=== PATIENT | male | born 1990 | race Caucasian/White ===

== ENCOUNTER 2023-01-23 19:30 | Emergency (ER) | payer OTHER, BC, SELFPAY ==
[2023-01-23 19:38] VITALS: BP 118/64; BP 132/68; PULSE 68; PULSE 78; RESP 22; TEMP 36.9; O2SAT 98; O2SAT 99; BMI 34.6
--- NOTE | 2023-01-23 21:08 | ED.BACK ---
HPI - Back Pain/Injury General Chief Complaint: Back Pain/Injury Stated Complaint: lower back pain Time Seen by Provider: 01/23/23 21:00 Source: patient and family Mode of arrival: EMS Limitations: no limitations History of Present Illness HPI Narrative: 32-year-old male with no significant past medical history presents to the emergency depart complaining of back pain. 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 He denies having any history of back pain he denies any fevers or chills he denies IV drug use he denies any loss of control of his bowel or bladder function he states he has become so stiff that he can not wipe his own blood. He has been taking ibuprofen his last dose of ibuprofen was over 9 hours ago. He has been taking for [id number] ibuprofen. He was seen at an urgent care and sent here for possible x-rays even though it is explained to him that x-rays not test of choice for this kind of issue. MD elicited complaint: back pain and back injury Related Data Previous Rx's Medication Instructions Recorded acetaminophen 325 mg tablet 325 mg PO QID PRN pain #90 tabs 01/23/23 (Tylenol) cyclobenzaprine 5 mg tablet 5 mg PO BEDTIME PRN muscle spasm 01/23/23 #20 tabs prednisone 20 mg tablet 60 mg PO DAILY Asthma 5 days #15 01/23/23 tabs Allergies Allergy/AdvReac Type Severity Reaction Status Date / Time No Known Allergies Allergy Verified 01/23/23 19:42 [No Known Allergies*] Review of Systems Review of Systems: Insert review of systems [facility] Social History Social History Advance Directives: No Advance Directives Information Provided: No Physical Exam Vital Signs: Vital Signs: Last Vital Signs Temp 98.4 F 01/23/23 19:38 Pulse 78 01/23/23 19:38 Resp 22 H 01/23/23 19:38 BP 118/64 01/23/23 19:38 Pulse Ox 99 01/23/23 19:38 O2 Del Method Room Air 01/23/23 19:38 BMI result Body Mass Index 34.6 General: Well-appearing well-nourished in no signs of distress HEENT: Normocephalic atraumatic Neck: No signs of JVD, no masses no tenderness or lymphadenopathy Cardiovascular: Regular rate and rhythm Respiratory: Clear to auscultation bilaterally Abdomen: Soft nontender no masses Extremities: Normal pedal pulses no signs of edema Skin: Dry warm no rashes Back: No tenderness full ROM he has brisk reflexes bilateral decreased movement but bilateral movement and strength, he has sensation to his buttucks, and perineum on exam Medications Administered Discontinued Medications Generic Name Dose Route Start Last Admin Trade Name Parul PRN Reason Stop Dose Admin Acetaminophen 650 mg 01/23/23 21:07 01/23/23 21:15 Acetaminophen 325 Mg Tablet PO 01/23/23 21:08 650 mg ONCE ONE Administration Cyclobenzaprine HCl 10 mg 01/23/23 21:08 01/23/23 21:15 Cyclobenzaprine Hcl 10 Mg Tablet PO 01/23/23 21:09 10 mg ONCE ONE Administration Haloperidol Lactate 5 mg 01/23/23 21:07 01/23/23 21:16 Haloperidol Lactate 5 Mg/Ml Vial IM 01/23/23 21:08 5 mg ONCE ONE Administration Ketorolac Tromethamine 15 mg 01/23/23 21:07 01/23/23 21:17 Ketorolac Tromethamine 30 Mg/Ml Vial IM 01/23/23 21:08 15 mg ONCE ONE Administration Prednisone 60 mg 01/23/23 21:07 01/23/23 21:15 Prednisone 20 Mg Tablet PO 01/23/23 21:08 60 mg ONCE ONE Administration Medical Decision Making Medical Decision Making [facility] Narrative: Patient has no recent trauma no unexplained weight loss no neurological symptoms weakness numbness anywhere in the body patient is younger than 50 has no fever no intervening drug use no steroid use no history of cancer prostate renal breast or lung no recent surgeries to the back and no tenderness to the back on palpation no fevers chills sweats night pain when he does not have any morning stiffness that lasts longer than 30 minutes. I think the patient benefit from pain control give Haldol for pain control cyclobenzaprine prednisone Toradol and Tylenol and reassess. [id number] Patient states he is no better but he was loudly moaning and unable to move when he came in by ambulance. He now is sitting up speaking full sentences I will send him home with prednisone and cyclobenzaprine with PCP follow up. Differential Diagnosis Differential Diagnoses: The differential diagnosis associated with the presentation includes Concern for disc herniation patient has pain up and down his back than isolated mostly to left lower back. Patient has no falls or injuries but did this something that caused the pain. I will hold off any x-rays I did spend time with him is the expected given x-ray explained to the bleed does not give us much information is not clinically relevant as MRIs without choice but to he need a MRI emergently as he has no back pain red flags as described above. Admission/Observation Consideration of admission/observation: Escalation of care including admission/observation considered Independent Historian Clinical information obtained from an independent historian. History obtained from or confirmed by: Spouse Discharge Plan Discharge Clinical Impression: Sciatica, Lumbar radiculopathy Patient Disposition: Home, Self-Care Instructions: Sciatica (ED), Lumbar Radiculopathy (ED), Lower Back Exercises (ED) Additional Instructions: Please call to follow up for your back pain. If you have any other concerns please return to the ED. Prescriptions: New acetaminophen [Tylenol] 325 mg tablet 325 mg PO QID PRN (Reason: pain) Qty: 90 0RF prednisone 20 mg tablet 60 mg PO DAILY 5 Days Qty: 15 0RF cyclobenzaprine 5 mg tablet 5 mg PO BEDTIME PRN (Reason: muscle spasm) Qty: 20 0RF Stand Alone Forms: Work/School Release
[2023-01-23] MEDS: Cyclobenzaprine HCl 10 MG TABLET PO (21:15)
[2023-01-23] MEDS: predniSONE 20 MG TABLET 60 MG PO (21:15)
[2023-01-23] MEDS: Acetaminophen 325 MG TABLET 650 MG PO (21:15)
[2023-01-23] MEDS: Haloperidol Lactate 5 MG/ML VIAL IM (21:16)
[2023-01-23] MEDS: Ketorolac Tromethamine 30 MG/ML VIAL 15 MG IM (21:17)
--- NOTE | 2023-01-23 21:20 | PC.NURSE ---
pt medicated according to mar per dr don's orders. pt medicated for 10/10 pain. this rn adjusted in bed. two pillows provided under R arm. pt partner at bedside at this time
[2023-01-23 22:28] VITALS: BP 105/62; PULSE 64; RESP 20; TEMP 36.8; O2SAT 98
--- NOTE | 2023-01-23 22:37 | PC.NURSE ---
skin pwd. vss. pt partner at bedside at time of discharge. ptprovided with discharge packet and work note. pt verbalized understanding of discharge plan. pt utilized wheelchair at discharge. this rn assisted pt into wheelchair at discharge
== END 2023-01-23 22:38 | disposition home or self-care (01) ==
PROVIDERS: Emergency Provider Student in an Organized Health Care Education/Training Program
DX: M54.16 Radiculopathy, lumbar region (principal); M54.40 Lumbago with sciatica, unspecified side; Z79.899 Other long term (current) drug therapy
CPT/HCPCS: 96372; 99284; J1885

== ENCOUNTER → 2023-01-29 12:18 | Outpatient (BNVA) | payer OTHER, SELFPAY | PROVIDERS: Visit Provider Internal Medicine | DX: M54.42 Lumbago with sciatica, left side (principal) | CPT/HCPCS: 99203 ==

== ENCOUNTER → 2023-01-31 15:07 | Outpatient (BNVA) | payer OTHER, SELFPAY | PROVIDERS: Visit Provider Internal Medicine | DX: M54.50 Low back pain, unspecified (principal) | CPT/HCPCS: 99213 ==

== ENCOUNTER → 2023-02-07 08:01 | Outpatient (BNVA) | payer OTHER, SELFPAY | PROVIDERS: Visit Provider Internal Medicine | DX: M54.42 Lumbago with sciatica, left side (principal) | CPT/HCPCS: 99213 ==

== ENCOUNTER → 2023-02-15 10:53 | Outpatient (BNVA) | payer OTHER, SELFPAY | PROVIDERS: Visit Provider Internal Medicine | DX: M54.42 Lumbago with sciatica, left side (principal) | CPT/HCPCS: 99213 ==

== ENCOUNTER → 2023-02-19 13:14 | Outpatient (BNVA) | payer OTHER, SELFPAY | PROVIDERS: Visit Provider Internal Medicine | DX: M54.42 Lumbago with sciatica, left side (principal) | CPT/HCPCS: 99213 ==

== ENCOUNTER → 2023-03-07 11:00 | Outpatient (BNVA) | payer OTHER, SELFPAY | PROVIDERS: Visit Provider Internal Medicine | DX: M54.42 Lumbago with sciatica, left side (principal) | CPT/HCPCS: 99213 ==

== ENCOUNTER → 2023-03-19 11:02 | Outpatient (BNVA) | payer OTHER, SELFPAY | PROVIDERS: Visit Provider Internal Medicine | DX: M54.42 Lumbago with sciatica, left side (principal) | CPT/HCPCS: 99213 ==

== ENCOUNTER → 2023-04-05 15:28 | Outpatient (BNVA) | payer OTHER, SELFPAY | PROVIDERS: Visit Provider Internal Medicine | DX: M54.42 Lumbago with sciatica, left side (principal) | CPT/HCPCS: 99213 ==

== ENCOUNTER 2023-04-12 07:00 | Outpatient (RCR) | payer OTHER, BC, SELFPAY ==
--- NOTE | 2023-02-13 17:08 | MHC.PT.EP ---
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 Pt is deemed an appropriate candidate to receive skilled PT services to address their physical impairments in order to improve their functional ability. Frequency and Duration: The patient will be seen 2nx / wk x6 wks. Short Term Goals: Initiate HEP. L LE radicular Sx abolished. Pt will be able to sit > 1 hour with manage Sx; initial: moderate difficulty. Divisional Human Resources Director Goals: I with home program. Pt will be able to walk 1 mile with managed Sx; initial: Quite a bit of difficulty. Pt will be able to ascend and descend 1 fl of stairs w/ managed sx; initial: quite a bit of difficulty. Pt will be able to perform Heavy HH chores with at most a little bit of difficulty. Treatment Plan: Modalities to reduce pain, spasms and effusion. Manual therapy to restore motion and function. Therapeutic exercise to improve strength and flexibility. Neuromuscular re-education for posture and balance. Therapeutic activities to return to functional activities of daily living. Electronically signed by: Orion Reynolds PT. Please sign and return to therapist. Thank you for your referral.
--- NOTE | 2023-04-23 17:14 | MHC.PT.DC ---
[facility] [place] Office [place] Office [place] Office [address]rina Frank [address] [phone] F: [phone] F: [phone] F: [phone] F: [phone] Physical Therapy Discharge Report Diagnosis: Back pain and L LE pain Date of Surgery: Date of Evaluation: 02/13/23 Date of Discharge: 04/23/23 Treatments to Date: 3 Cancellations to Date: 2 No Shows to Date: 3 Discharge Status: Visit Non-compliance Discharge Summary: Pt logged 2 cancels and 3 no show apts and is DC'd per [facility] attendance policy. Electronically signed by: Orion Reynolds PT. Please sign and return to therapist. Thank you for your referral.
== END 2023-04-23 17:14 | disposition home or self-care (01) ==
LOC: HO.PTCHIC 07:00
PROVIDERS: Visit Provider Internal Medicine
DX: M54.9 Dorsalgia, unspecified (principal); M79.605 Pain in left leg
CPT/HCPCS: 97110; 97161; 97164

== ENCOUNTER → 2023-04-19 08:22 | Outpatient (BNVA) | payer OTHER, SELFPAY | PROVIDERS: Visit Provider Internal Medicine | DX: M54.9 Dorsalgia, unspecified (principal) | CPT/HCPCS: 99213 ==

== ENCOUNTER 2023-08-23 17:58 | Emergency (ER) | payer BC, SELFPAY ==
--- NOTE | ~2023-08-23 | CT_ITS ---
EXAMINATION: CT ABDOMEN AND PELVIS WITH CONTRAST CLINICAL INFORMATION: Serial abdominal pain COMPARISON: None available. TECHNIQUE: Multidetector volumetric images were obtained from the superior aspect of the liver through the pubic symphysis following administration 85 mL of Omnipaque 350 intravenous contrast. Sagittal and coronal reformatted images were obtained on the technologist's workstation. Oral contrast: No This CT examination was performed using dose optimization techniques as appropriate, variously including the following: *Automated exposure control *Adjustment of mA and/or kV according to patient size (this includes techniques or standardized protocols for targeted exams where dose is matched to indication/reason for exam; i.e. extremities or head) *Use of iterative reconstruction technique DLP: 732 mGy-cm FINDINGS: LUNG BASES: The lung bases are clear. The heart size is normal. LIVER, GALLBLADDER, AND BILIARY TREE: The liver is normal in size, shape, and attenuation. No focal hepatic lesion or biliary ductal dilatation is present. The gallbladder has been surgically removed. PANCREAS: Unremarkable. SPLEEN: Unremarkable. ADRENAL GLANDS: Unremarkable. KIDNEYS AND URETERS: The kidneys are normal in size, shape, and attenuation. No hydronephrosis, hydroureter, or calculi seen. No perinephric stranding. BLADDER: Unremarkable. GASTROINTESTINAL TRACT: There is scattered stool and gas seen throughout the colon without significant distention. Subserosal fat deposits in is seen within the descending colon and terminal ileum, a nonspecific finding. No pericolic fat stranding. The small bowel loops are normal caliber. Appendix is normal caliber with hyperdense material at the base question appendicolith. No fat stranding seen. ABDOMINAL WALL: No significant hernia is appreciated. LYMPH NODES: Normal. VASCULAR: Unremarkable. PELVIC VISCERA: No free air or free fluid. No abnormal pelvic lymph nodes. OSSEOUS STRUCTURES: No aggressive lytic or sclerotic process seen CT/CT abdomen pelvis w IV con IMPRESSION: 1. No acute intra-abdominal process seen. 2. Mild constipation. Fleischner guidelines were followed.
[2023-08-23 18:14] VITALS: BP 110/80; PULSE 109; RESP 20; TEMP 37.3; O2SAT 97; BMI 33.2
--- NOTE | 2023-08-23 18:16 | ED_ITS ---
HPI - General Adult General Chief complaint: Abdominal Pain Stated complaint: has pancreatitis , in pain Time Seen by Provider: 08/23/23 18:50 Source: patient, family, RN notes reviewed and old records reviewed Mode of arrival: ambulatory Limitations: no limitations History of Present Illness HPI narrative: Pt is a 32yo male who presents to the ED with abdominal pain. He states that he had his gallbladder removed in June and a gallstone got left lodged in the pancreas. He presented to [facility] this past Saturday for severe abdominal pain but left AMA due to concerns that they weren't doing enough for him. He states that they diagnosed him with pancreatitis and had been controlling his pain with morphine. Since leaving his pain returned and he currently rates it a 9/10 sharp stabbing pain worst in the epigastric and LUQ regions that radiates to the lower back bilaterally. Pt notes some relief of pain with laying down. Denies vomiting but notes some nausea when the pain gets bad. He notes that his last BM was Saturday which was diarrhea. He has been on a liquid diet since Saturday. He states a subjective fever this morning but denies chest pain, difficulty breathing, or palpitations. I was able to obtain records for [facility] including a CT scan from 08/21/2023 that shows findings are concerning for possible pancreatitis. Recommend correlation with patient's lab findings. Mild gastritis. Slightly enlarged appendix measuring up to 8 mm with appendicolith but no fat stranding Related Data Previous Rx's Medication Instructions Recorded acetaminophen 325 mg tablet 325 mg PO QID PRN pain #90 tabs 01/23/23 (Tylenol) cyclobenzaprine 5 mg tablet 5 mg PO BEDTIME PRN muscle spasm 01/23/23 #20 tabs prednisone 20 mg tablet 60 mg (3 x 20 mg) PO DAILY Asthma 01/23/23 5 days #15 tabs ondansetron 4 mg disintegrating 4 mg PO Q8H PRN nausea and 08/23/23 tablet vomiting #20 tabs oxycodone 5 mg tablet 5 mg PO Q6H PRN severe pain (scale 08/23/23 score 7-10) #12 tabs Allergies Allergy/AdvReac Type Severity Reaction Status Date / Time No Known Allergies Allergy Verified 08/23/23 18:20 [No Known Allergies*] Review of Systems 2 Constitutional: Constitutional: Reports chills, Reports fever(s), Reports headache(s) and Denies weakness Eyes: Eyes: Denies change in vision ENT: Denies dizziness and Reports headache(s) Cardiovascular: Cardiovascular: Denies chest pain, Reports Epigastric Pain and Denies dyspnea Respiratory: Respiratory: Denies dyspnea Gastrointestinal: Gastrointestinal: Reports abdominal pain, Reports diarrhea (Last BM on Saturday morning was diarrhea), Reports nausea and Denies vomiting Genitourinary: Genitourinary: Reports dysuria (notes one isolated episode of dysuria yesterday) and Denies urinary frequency Neurologic: Denies dizziness, Reports headache(s) and Denies weakness [facility] Social History Smoked in Last 30 Days: No Use of substances other than those prescribed or required for medical reasons: Yes Substance Use Type: Marijuana Advance Directives: No Advance Directives Information Provided: No Physical Exam ED Vital Signs: Vital Signs - 24 hr 08/23/23 18:14 08/23/23 20:36 Temperature 99.2 F 99 F Pulse Rate 109 H 76 Respiratory Rate 20 18 Blood Pressure 110/80 110/72 Pulse Oximetry 97 99 Oxygen Delivery Method Room Air Room Air BMI result Body Mass Index 33.2 Const General: cooperative, no acute distress, alert and awake; No comfortable Orientation/consciousness: patient oriented x3 HENMT Head: Yes normocephalic and Yes atraumatic Ears: hearing grossly normal bilaterally General nose exam: Normal external nose present Eyes General: appearance normal, both eyes and all related structures Neck Neck: Yes normal visual inspection Chest Chest palpation & inspection: normal inspection of the chest Resp Effort & Inspection: normal respiratory effort and able to speak in complete sentences Auscultation: clear to auscultation bilaterally Cardio Rate: regular rate Rhythm: regular rhythm Heart sounds: S1 normal heart sound present and S2 normal heart sound present GI Inspection: Yes normal to inspection and No abdominal wall ecchymosis Palpation (GI): Soft to palpation, not firm, Tenderness to palpation present (GI) (tenderness most severe in LUQ) in the epigastrum, in the LLQ, in the LUQ and in the RUQ; not in the RLQ and Guarding due to palpation present (GI) Auscultation: Hypoactive bowel sounds present Neuro General: patient oriented x3 and moves all extremities Motor exam (neuro): 5/5 motor strength present throughout Course Course Course Narrative: This is a rapid medical exam: Additional HPI, ROS, PE not included below will be deferred to primary provider. Patient is a 32-year-old male presenting to the ED with complaint of abdominal pain, nausea. Left AMA from [facility] yesterday where he was admitted for pancreatitis. Also reports recent cholecystectomy, states they left a stone in there. States today he ate 2 crackers and strawberry ice cream. Denies nausea/vomiting but states pain is radiating from his abdomen into his back which is new. Denies history of alcohol use. Plan: labs, UA Reevaluation(s) Reevaluation #1: Patient's CT scan shows no evidence of pancreatitis, his lipase within normal limits, he does have a mild elevation with a 1.5 but is mostly indirect bili Carter therefore less likely to be an obstructive biliary process. Patient's pain is currently under control. History will tolerate fluids. Will discharge the patient with GI follow-up Time: 22:57 Medications Administered Discontinued Medications Generic Name Dose Route Start Last Admin Trade Name Freq PRN Reason Stop Dose Admin Sodium Chloride 1,000 mls @ 999 mls/hr 08/23/23 19:15 08/23/23 21:04 Ns IV 08/23/23 20:15 Infused .Q1H1M JOE Infusion Iohexol 85 ml 08/23/23 20:11 08/23/23 20:12 Iohexol 350 Mg/Ml 100 Ml Infus..Btl IV 08/23/23 20:12 85 ml ONCE ONE Administration Morphine Sulfate 4 mg 08/23/23 19:10 08/23/23 19:30 Morphine Sulfate 4 Mg/Ml Cartridge IVPUSH 08/23/23 19:11 4 mg ONCE ONE Administration Protocol Ondansetron HCl 4 mg 08/23/23 19:10 08/23/23 19:30 Ondansetron Hcl 4 Mg/2 Ml Vial IVPUSH 08/23/23 19:11 4 mg ONCE ONE Administration Medical Decision Making Medical Decision Making MDM Narrative: 32-year-old male presents for evaluation of continued abdominal pain. He was seen at [facility] and left AMA yesterday for pancreatitis. We will repeat labs, CT scan the abdomen pelvis. Patient was noted have a temperature about 99.2. He does not have a leukocytosis, LFTs are slightly elevated. Lipase over normal limits. Differential Diagnosis Differential Diagnoses: The differential diagnosis associated with the presentation includes (acute pancreatitis, appendicitis, gastroenteritis, pyelonephritis, post-cholecystectomy cholangitis) Admission/Observation Consideration of admission/observation: Escalation of care including admission/observation considered Lab Data MDM Lab Attestation statement: I reviewed the patient's lab results. No leukocytosis or anemia. Chloride just above normal at 109. Normal renal function. Patient has a slight transaminitis and LFTs within normal limits 08/23/23 18:41 08/23/23 18:41 Labs: Lab Results 08/23/23 08/23/23 Range/Units 18:41 20:49 WBC 8.6 (4.8-10.8) X10*3/uL RBC 5.19 (4.60-5.80) X10*6/uL Hgb 14.3 (14.0-18.0) g/dl Hct 42.3 (42.0-52.0) % MCV 81.5 (80.0-98.0) fL MCH 27.6 (27.0-33.0) pg MCHC 33.8 (31.0-36.0) g/dl RDW 13.8 (11.0-16.0) % Plt Count 264 (160-400) X10*3/uL MPV 9.2 L (9.4-12.4) fL Immature Gran % (Auto) 0.1 (0.0-0.4) % Neut % (Auto) 53.8 (45-73) % Lymph % (Auto) 32.4 (20-40) % Forrest % (Auto) 8.5 (2-11) % Eos % (Auto) 4.3 H (0-4) % Baso % (Auto) 0.9 (0-2) % Lymph # (Auto) 2.8 (1.2-4.9) X10*3/uL Forrest # (Auto) 0.7 (0.1-1.2) X10*3/uL Eos # (Auto) 0.4 (0.0-0.4) X10*3/uL Baso # (Auto) 0.1 (0.0-0.2) X10*3/uL Abs Immat Gran (auto) 0.01 (0.00-0.03) X10*3/uL Absolute Neuts (auto) 4.6 (2.0-8.3) x10*3/uL Absolute Nucleated RBC 0.000 (0.0-0.012) X10*3/uL Nucleated RBC % (auto) 0.0 (0.0-0.2) /100WBC PT 11.7 (11.1-13.3) SEC INR 1.0 (0.9-1.1) APTT 18.7 L (26.0-36.4) SEC Sodium 141 (135-145) mmol/L Potassium 3.8 (3.3-5.1) mmol/L Chloride 109 H (96-108) mmol/L Carbon Dioxide 25 (22-29) mmol/L Anion Gap 11 L (12-20) BUN 8 L (9-16) mg/dL Creatinine 0.81 (0.5-1.4) mg/dL Estim Creat Clear Calc 168.5 Estimated GFR > 60 Random Glucose 75 (60-115) mg/dL Calcium 9.4 (8.4-10.2) mg/dL Total Bilirubin 1.5 H (0.0-1.0) mg/dL Direct Bilirubin 0.4 (0.0-0.5) mg/dL AST 42 H (5-37) U/L ALT 159 H (0-40) U/L Alkaline Phosphatase 89 (39-117) U/L Total Protein 7.2 (6.5-8.0) g/dL Albumin 4.1 (3.5-5.0) g/dL Triglycerides 92 (<150) mg/dL Lipase 74 (8-78) U/L Urine Color Yellow Urine Appearance Clear Urine pH 7.0 (5.0-9.0) Ur Specific [place] 1.015 (1.005-1.025) Urine Protein Negative (Neg-Trace) mg/dL Urine Glucose (UA) Negative (Negative) mg/dL Urine Ketones Negative (Negative) mg/dL Urine Blood Negative (Negative) Urine Nitrite Negative (Negative) Ur Leukocyte Esterase Negative (Negative) Discharge Plan Discharge Clinical Impression: Abdominal pain Patient Disposition: Home, Self-Care Instructions: Abdominal Pain (ED) Additional Instructions: Your workup in the emergency department today was reassuring. This includes your blood work as well as her CT scan. The you do not have acute pancreatitis You may use oxycodone for severe or breakthrough pain This may make you sleepy, did not drink alcohol or drive after taking it Drink lots of fluids, small sips at a time You should continue with a liquid diet for the next 2 days and advance slowly as tolerated Prescriptions: New ondansetron 4 mg tablet,disintegrating 4 mg PO Q8H PRN (Reason: nausea and vomiting) Qty: 20 0RF oxycodone 5 mg tablet 5 mg PO Q6H PRN (Reason: severe pain (scale score 7-10)) Qty: 12 0RF Rx Instructions: Partial Fill upon patient request. No Action acetaminophen [Tylenol] 325 mg tablet 325 mg PO QID PRN (Reason: pain) Qty: 90 0RF prednisone 20 mg tablet 60 mg PO DAILY 5 Days Qty: 15 0RF cyclobenzaprine 5 mg tablet 5 mg PO BEDTIME PRN (Reason: muscle spasm) Qty: 20 0RF Stand Alone Forms: Work/School Release
[2023-08-23 18:47] LABS: MANUAL DIFF FLAG NO
[2023-08-23 18:49] LABS: Basophils Absolute Auto 0.1 X10*3/uL (0.0-0.2); Basophils Percent Auto 0.9 % (0-2); Eosinophils Absolute Auto 0.4 X10*3/uL (0.0-0.4); Eosinophils Percent Auto 4.3 % (0-4); Hematocrit 42.3 % (42.0-52.0); Hemoglobin 14.3 g/dl (14.0-18.0); Imm Gran Abs Auto 0.01 X10*3/uL (0.00-0.03); Imm Gran Pct Auto 0.1 % (0.0-0.4); Lymphocytes Absolute Auto 2.8 X10*3/uL (1.2-4.9); Lymphocytes Percent Auto 32.4 % (20-40); Mean Corpuscular HGB Conc 33.8 g/dl (31.0-36.0); Mean Corpuscular Hemoglobin 27.6 pg (27.0-33.0); Mean Corpuscular Volume 81.5 fL (80.0-98.0); Mean Platelet Volume 9.2 fL (9.4-12.4); Monocytes Absolute Auto 0.7 X10*3/uL (0.1-1.2); Monocytes Percent Auto 8.5 % (2-11); Neutrophils Absolute Auto 4.6 x10*3/uL (2.0-8.3); Neutrophils Percent Auto 53.8 % (45-73); Platelet Count 264 X10*3/uL (160-400); Red Blood Count 5.19 X10*6/uL (4.60-5.80); Red Cell Distribution Width 13.8 % (11.0-16.0); White Blood Count 8.6 X10*3/uL (4.8-10.8)
[2023-08-23 18:54] LABS: Prothrombin Time 11.7 SEC (11.1-13.3)
[2023-08-23 18:57] LABS: Partial Thromboplastin Time 18.7 SEC (26.0-36.4)
[2023-08-23 19:02] LABS: Alanine Aminotransferase 159 U/L (0-40); Albumin Level 4.1 g/dL (3.5-5.0); Alkaline Phosphatase 89 U/L (39-117); Anion Gap 11 (12-20); Aspartate Amino Transferase 42 U/L (5-37); Bilirubin Total 1.5 mg/dL (0.0-1.0); Blood Urea Nitrogen 8 mg/dL (9-16); Calcium 9.4 mg/dL (8.4-10.2); Carbon Dioxide 25 mmol/L (22-29); Chloride 109 mmol/L (96-108); Creatinine Clr Calc Pharmacy 168.5; Estimated Glomerular Filt Rate > 60; Glucose Random 75 mg/dL (60-115); Potassium 3.8 mmol/L (3.3-5.1); Sodium 141 mmol/L (135-145); Total Protein 7.2 g/dL (6.5-8.0)
[2023-08-23] MEDS: Morphine Sulfate 4 MG/ML CARTRIDGE IVPUSH (19:30)
[2023-08-23] MEDS: 0.9 % Sodium Chloride 1,000 ML 999 ML IV (19:30)
[2023-08-23] MEDS: ondansetron HCL 4 MG/2 ML VIAL IVPUSH (19:30)
[2023-08-23 19:36] LABS: Lipase 74 U/L (8-78)
--- NOTE | 2023-08-23 19:36 | PC.NURSE ---
this rn assumed care of pt. pt a&ox4, respirations even and unlabored. pt reporting epigastric pain and left upper abdominal pain, nausea and vomiting since saturday. pt reports pain like this in the past where he states he needed gallbladder surgery. pt reporting 10/10 pain at this time. Iv established and pt medicated per nov.
[2023-08-23] MEDS: iohexoL 350 MG/ML 100 ML INFUS..BTL 85 ML IV (20:12)
--- NOTE | 2023-08-23 20:34 | MHC.EDTECH ---
VSS, labs collected and sent . Pt resting quietly in room.
[2023-08-23 20:36] VITALS: BP 110/72; PULSE 76; RESP 18; TEMP 37.2; O2SAT 99
[2023-08-23 20:55] LABS: Appearance Urine Clear; Color Urine Yellow; Glucose Urine UA Negative (Negative); Leukocyte Esterase Urine Negative (Negative); Nitrite Urine Negative (Negative); Specific Gravity - Urine 1.015 (1.005-1.025); Urine Blood Negative (Negative); Urine Ketones Negative (Negative); Urine Protein Negative (Neg-Trace)
[2023-08-23 22:20] LABS: Bilirubin Direct 0.4 mg/dL (0.0-0.5); Triglycerides 92 mg/dL (<150)
[2023-08-23 23:20] VITALS: BP 121/71; PULSE 58; RESP 18; TEMP 36.7; O2SAT 99
== END 2023-08-23 23:22 | disposition home or self-care (01) ==
PROVIDERS: Physician Assistant; Registered Nurse Emergency; Emergency Provider Emergency Medicine Emergency Medical Services
DX: K85.90 Acute pancreatitis without necrosis or infection, unspecified (principal); R10.12 Left upper quadrant pain; R10.13 Epigastric pain; Z79.899 Other long term (current) drug therapy
CPT/HCPCS: 36415; 74177; 80053; 81003; 82248; 83690; 84478; 85025; 85610; 85730; 87040; 96361; 96374; 96375; 99284; 99285; J2270; J2405; Q9967

== ENCOUNTER 2024-07-04 10:22 | Emergency (ER) | payer OTHER, MEDICAID, SELFPAY ==
--- NOTE | ~2024-07-04 | MR_ITS ---
EXAMINATION: MR LUMBAR SPINE WITHOUT CONTRAST CLINICAL INFORMATION: Lower back pain. Cauda equina syndrome. COMPARISON: CT abdomen and pelvis from 08/23/2023. TECHNIQUE: MRI of the lumbar spine was obtained using routine sequences without contrast. FINDINGS: Moderately motion degraded exam. Mild degenerative retrolistheses of L5 on S1. Otherwise, normal anatomic alignment. Moderate degenerative disc disease at L5-S1. Mild disc degeneration from T11-L2. Associated mixed Modic type discogenic endplate changes including Modic type I discogenic edema at L5-S1. No additional suspicious marrow edema. The vertebral body heights are well-maintained. The conus medullaris terminates at the level of L1-L2. The distal spinal cord appears normal in morphology without overt expansion. No definitive signal abnormalities of the distal cord, although evaluation is limited at the edge of field of view and secondary to motion degradation. Moderate subcutaneous edema within the posterior soft tissues of the back from L2-L5. No additional significant abnormalities of the paraspinal musculature. Limited evaluation of the intra-abdominal structures without significant abnormalities. The abdominal aorta is of normal contour and caliber. AXIAL SPINAL LEVELS: T12-L1: Normal annular contour. There is no facet joint arthropathy. There is no neural foraminal stenosis. There is no spinal canal stenosis. L1-L2: Normal annular contour. There is mild bilateral facet joint arthropathy. There is no neural foraminal stenosis. There is no spinal canal stenosis. L2-L3: Normal annular contour. There is mild to moderate bilateral facet joint arthropathy. There is no neural foraminal stenosis. There is no spinal canal stenosis. L3-L4: Normal annular contour. There is mild bilateral facet joint arthropathy. There is no neural foraminal stenosis. There is no spinal canal stenosis. L4-L5: Shallow diffuse disc bulge. There is mild bilateral facet joint arthropathy. There is mild left and no right neural foraminal stenosis. There is no spinal canal stenosis. L5-S1: Moderate diffuse disc bulge superimposed central disc extrusion with slight inferior migration. There is mild bilateral facet joint arthropathy. There is moderate left and mild right neural foraminal stenosis. There is no spinal canal stenosis. MR/MR lumbar spine wo con IMPRESSION: Mild multilevel degenerative spondyloarthropathy of the lumbar spine as described in detail above. There is a central disc extrusion at L5-S1 and moderate left-sided neural foraminal stenosis at this level. No overt spinal canal stenosis. The distal spinal cord appears normal in morphology without overt expansion. No definitive signal abnormalities of the distal cord, although evaluation is limited at the edge of field of view and secondary to motion degradation. Electronically signed by: Jose Francisco Gudino DO 07/04/2024 07:03 PM EDT
--- NOTE | ~2024-07-04 | XR_ITS ---
EXAMINATION: XR LUMBOSACRAL SPINE CLINICAL INFORMATION: Injury. Back pain. COMPARISON: Lumbar spine x-rays of 11/07/2018 . TECHNIQUE: Three views of the lumbosacral spine. FINDINGS: There are 5 lumbar-type nonrib-bearing vertebrae. The vertebral body heights and alignment are maintained. Stable mild narrowing of the L5-S1 disc space, remainder of the disc spaces are well preserved. Posterior elements appear intact. Minimal anterior wedge compression at T12 is a stable chronic finding. No suspicious lytic or blastic osseous lesions. Postcholecystectomy surgical clips in the right upper abdominal quadrant are redemonstrated. Unremarkable appearance of the sacroiliac joints. Unremarkable paraspinous soft tissues. XR/XR lumbar spine 2-3V IMPRESSION: No radiographic evidence of acute compression fracture or suspicious osseous lesion in the lumbar spine. Mild degenerative disc disease at L5-S1. Electronically signed by: Tamie Sue MD 07/04/2024 01:29 PM EDT
[2024-07-04 10:29] VITALS: BP 107/57; BP 134/66; PULSE 61; PULSE 67; RESP 18; TEMP 36.3; O2SAT 96; O2SAT 98; BMI 35.1
--- NOTE | 2024-07-04 11:15 | ED_ITS ---
HPI - Back Pain/Injury General Chief Complaint: Back Pain/Injury Stated Complaint: LOW BACK PAIN S/P MOVED WRONG @ WORK T-1 Time Seen by Provider: 07/04/24 10:50 Source: patient and EMS Mode of arrival: EMS Limitations: no limitations History of Present Illness ED Provider: Purnima Pereira APRN HPI Narrative: 33 yo male with history of herniated discs presents to the ER with complaints of lower back pain after lifting a 3x6 at work yesterday. Pain radiates to both legs right leg greater than left. No associated numbness, weakness, tingling of the extremities. No numbness in the groin. No bowel or bladder incontinence. No fevers or chills. Patient took some leftover meloxicam yesterday which did seem to help his pain. He has not taken anything today. He is having difficulty with ambulation due to pain. Denies any weight loss, night sweats, history of IV drug abuse. Related Data Previous Rx's ?Medication ?Instructions ?Recorded acetaminophen 325 mg tablet 325 mg PO QID PRN pain #90 tabs 01/23/23 (Tylenol) cyclobenzaprine 5 mg tablet 5 mg PO BEDTIME PRN muscle spasm 01/23/23 #20 tabs prednisone 20 mg tablet 60 mg (3 x 20 mg) PO DAILY Asthma 01/23/23 5 days #15 tabs ondansetron 4 mg disintegrating 4 mg PO Q8H PRN nausea and 08/23/23 tablet vomiting #20 tabs oxycodone 5 mg tablet 5 mg PO Q6H PRN severe pain (scale 08/23/23 score 7-10) #12 tabs methocarbamol 750 mg tablet 1,500 mg (2 x 750 mg) PO QID PRN 07/04/24 pain #40 tabs methylprednisolone 4 mg tablets in 4 mg PO QAM #1 ea 07/04/24 a dose pack (Medrol (Gerard)) Allergies Allergy/AdvReac Type Severity Reaction Status Date / Time No Known Allergies Allergy Verified 07/04/24 10:31 [No Known Allergies*] Review of Systems 2 Review of Systems: Yes all other systems are reviewed and are negative Constitutional: Constitutional: Reports no additional constitutional complaints, Denies body ache(s), Denies chills, Denies fever(s), Denies headache(s), Denies night sweats, Denies weakness and Denies weight loss Eyes: Eyes: Reports no additional eye complaints and Denies change in vision ENT: Reports system reviewed and no additional complaints, except as documented, Denies dizziness, Denies headache(s), Denies nasal congestion, Denies nasal discharge and Denies neck pain Cardiovascular: Cardiovascular: Reports no additional cardiovascular complaints, Denies chest pain, Denies leg edema and Denies dyspnea Respiratory: Respiratory: Reports no additional respiratory complaints, Denies cough and Denies dyspnea Gastrointestinal: Gastrointestinal: Reports no additional gastrointestinal complaints, Denies abdominal pain, Denies diarrhea, Denies nausea and Denies vomiting Genitourinary: Genitourinary: Denies urinary incontinence Musculoskeletal: Musculoskeletal: Reports no additional musculoskeletal complaints, Reports back pain, Denies arthralgias, Denies joint swelling, Denies neck pain, Denies numbness, Reports radiating pain into limb and Denies tingling Integumentary/Breasts: Skin/Breast: Reports system reviewed and no additional complaints, except as docu and Denies rash Neurologic: Reports system reviewed and no additional complaints, except as documented, Denies Abnormal speech present, Denies dizziness, Denies headache(s), Denies numbness, Denies tingling and Denies weakness PMFSH Past Medical History Attestation statement: The following information was validated with the patient. Source: old records reviewed and nursing notes reviewed Social History Social History Substance Use Type: Marijuana Advance Directives: No Do you have a plan to hurt others: No Plan Physical Exam 2 Vital Signs: Vital Signs: Last Vital Signs Temp 97.9 F 07/04/24 21:01 Pulse 86 07/04/24 21:01 Resp 18 07/04/24 21:01 BP 124/83 07/04/24 21:01 Pulse Ox 97 07/04/24 21:01 O2 Del Method Room Air 07/04/24 21:01 BMI result Body Mass Index 35.1 Const: General: cooperative, healthy appearing, comfortable and no acute distress Orientation/consciousness: patient oriented x3 Limitations: no limitations HEENT: Head: Yes normal to inspection Ears: hearing grossly normal bilaterally General nose exam: Normal external nose present Face and sinus: Yes normal facial exam Mouth: Normal oral and palatal mucosa present Throat: Yes posterior oropharynx normal Eyes: General: appearance normal, both eyes and all related structures P upils: Equal, round and reactive pupils present Neck: Neck: Yes normal visual inspection Chest: Chest palpation & inspection: normal inspection of the chest Resp: Effort & Inspection: normal respiratory effort Auscultation: clear to auscultation bilaterally Cardio: Rate: regular rate Rhythm: regular rhythm Peripheral pulses: P eripheral pulses 2+ throughout GI: Inspection: Yes normal to inspection Palpation (GI): Soft to palpation and nontender Auscultation: normal bowel sounds Back/Spine/Pelvis: Other: TTP over lumbar spine with no step-offs or deformities. Pain is worsened with bilateral straight leg raise. Thoracic/Lumbar Spine: thoracic and lumbar spine normal to inspection Skin: General skin exam: no rashes or lesions noted Neuro: Other: 5/5 LE strength-able to dorsi flex/plant ar flex with no diff. No foot drop General: patient oriented x3, moves all extremities, no focal motor deficits, normal sensation to monofilament and Unable to assess gait Cranial nerves: Yes Equal, round and reactive pupils present Cognition (Neuro): n ormal cognition Speech: No Abnormal speech present Gait exam (Neuro): U nable to assess gait Motor exam (neuro): 5/5 motor strength present throughout Sensory Exam: Normal double simultaneous stimulation for sensation Deep tendon reflexes (DTR's): Right patellar reflex intensity grade: 2+ and Left patellar reflex intensity grade: 2+ Extrem: General: Yes normal to inspection Course Course Course Narrative: 1330-X-rays shows mild arthritis. Still having pain and diff with ambulation after toradol, flexeril, prednisone. Will give oxycodone. Reevaluation(s) Reevaluation #1: 1500-Continued pain although seems to be more comfortable still having difficulty with ambulation. Will give IM morphine, apply salon pas Reevaluation #2: 1645-Continued pain. Tried to get up to walk, legs giving out on him. No neurological deficits. D/w with attending. Obtain MRI lumbar spine Reevaluation #3: 1900-Sign out to Tiffanie MAST pending MRI Additional Reevaluation(s): Ellie Joy PA-C have accepted care of the patient and signed out pending MRI I have independently reviewed the following tests: MRI lumbar spine:MR LUMBAR SPINE WITHOUT CONTRAST CLINICAL INFORMATION: Lower back pain. Cauda equina syndrome. COMPARISON: CT abdomen and pelvis from 08/23/2023. TECHNIQUE: MRI of the lumbar spine was obtained using routine sequences without contrast. FINDINGS: Moderately motion degraded exam. Mild degenerative retrolistheses of L5 on S1. Otherwise, normal anatomic alignment. Moderate degenerative disc disease at L5-S1. Mild disc degeneration from T11-L2. Associated mixed Modic type discogenic endplate changes including Modic type I discogenic edema at L5-S1. No additional suspicious marrow edema. The vertebral body heights are well-maintained. The conus medullaris terminates at the level of L1-L2. The distal spinal cord appears normal in morphology without overt expansion. No definitive signal abnormalities of the distal cord, although evaluation is limited at the edge of field of view and secondary to motion degradation. Moderate subcutaneous edema within the posterior soft tissues of the back from L2-L5. No additional significant abnormalities of the paraspinal musculature. Limited evaluation of the intra-abdominal structures without significant abnormalities. The abdominal aorta is of normal contour and caliber. AXIAL SPINAL LEVELS: T12-L1: Normal annular contour. There is no facet joint arthropathy. There is no neural foraminal stenosis. There is no spinal canal stenosis. L1-L2: Normal annular contour. There is mild bilateral facet joint arthropathy. There is no neural foraminal stenosis. There is no spinal canal stenosis. L2-L3: Normal annular contour. There is mild to moderate bilateral facet joint arthropathy. There is no neural foraminal stenosis. There is no spinal canal stenosis. L3-L4: Normal annular contour. There is mild bilateral facet joint arthropathy. There is no neural foraminal stenosis. There is no spinal canal stenosis. L4-L5: Shallow diffuse disc bulge. There is mild bilateral facet joint arthropathy. There is mild left and no right neural foraminal stenosis. There is no spinal canal stenosis. L5-S1: Moderate diffuse disc bulge superimposed central disc extrusion with slight inferior migration. There is mild bilateral facet joint arthropathy. There is moderate left and mild right neural foraminal stenosis. There is no spinal canal stenosis. MR/MR lumbar spine wo con IMPRESSION: Mild multilevel degenerative spondyloarthropathy of the lumbar spine as described in detail above. There is a central disc extrusion at L5-S1 and moderate left-sided neural foraminal stenosis at this level. No overt spinal canal stenosis. The distal spinal cord appears normal in morphology without overt expansion. No definitive signal abnormalities of the distal cord, although evaluation is limited at the edge of field of view and secondary to motion degradation. Electronically signed by: Jose Francisco Gudino DO 07/04/2024 07:03 PM EDT RP Dictated By: Holden Gudino DO Signed By: <Electronically signed by Holden Gudino DO in OV> 07/04/24 190 After discussion with the patient, due to his significant pain, he is unable to ambulate, they did trial him with a walker, his leg gave out. He will be held over for case management physical therapy, ordering methocarbamol 1033 pm the patient is now ambulatory, walking without assistance, he would like to go home. We will do so now Medications Administered Discontinued Medications Generic Name Dose Route Start Last Admin Trade Name Freq PRN Reason Stop Dose Admin Cyclobenzaprine HCl 10 mg 07/04/24 11:23 07/04/24 11:28 Cyclobenzaprine Hcl 10 Mg Tablet PO 07/04/24 11:24 10 mg ONCE ONE Administration Ketorolac Tromethamine 60 mg 07/04/24 11:23 07/04/24 11:28 Ketorolac Tromethamine 60 Mg/2 Ml Vial IM 07/04/24 11:24 60 mg ONCE ONE Administration Lidocaine 1 patch 07/04/24 14:57 07/04/24 15:04 Lidocaine 4 % Patch Adh..Patch TRANSDERMA 07/04/24 14:58 1 patch ONCE ONE Administration Protocol Methocarbamol 1,500 mg 07/04/24 20:50 07/04/24 20:58 Methocarbamol 750 Mg Tablet PO 07/04/24 20:51 1,500 mg ONCE ONE Administration Morphine Sulfate 6 mg 07/04/24 14:57 07/04/24 15:05 Morphine Sulfate 10 Mg/Ml Cartridge IM 07/04/24 14:58 6 mg ONCE ONE Administration Protocol Morphine Sulfate 4 mg 07/04/24 16:42 07/04/24 17:04 Morphine Sulfate 4 Mg/Ml Cartridge IVPUSH 07/04/24 16:43 4 mg ONCE ONE Administration Protocol Oxycodone HCl 10 mg 07/04/24 13:35 07/04/24 13:38 Oxycodone Hcl Immed Release 5 Mg Tablet PO 07/04/24 13:36 10 mg ONCE ONE Administration Prednisone 60 mg 07/04/24 11:23 07/04/24 11:29 Prednisone 20 Mg Tablet PO 07/04/24 11:24 60 mg ONCE ONE Administration Medical Decision Making Medical Decision Making [facility] Narrative: 33 yo male with history of herniated discs presents to the ER with complaints of lower back pain after lifting a 3x6 at work yesterday. Pain radiates to both legs right leg greater than left. No associated numbness, weakness, tingling of the extremities. No numbness in the groin. No bowel or bladder incontinence. No fevers or chills. Patient took some leftover meloxicam yesterday which did seem to help his pain. He has not taken anything today. He is having difficulty with ambulation due to pain. Denies any weight loss, night sweats, history of IV drug abuse. TTP over lumbar spine with no step-offs or deformities. Pain is worsened with bilateral straight leg raise. On exam no neurological deficits or red flag symptoms. Differential Diagnosis Differential Diagnoses: The differential diagnosis associated with the presentation includes Lumbar radiculopathy, lumbar strain, herniated disc Low suspicion for epidural abscess with no risk factors of same, no neurological deficits or red flag symptoms Low suspicion for ACS with no reports of chest pain, shortness of breath, diaphoresis or vomiting Low suspicion for pyelonephritis or renal colic with no CVA tenderness, urinary symptoms reported Low suspicion for malignancy with no red flag symptoms, more acute onset Low suspicion for cord compression, cauda equina with normal neurological exam and no red flag symptoms Admission/Observation Consideration of admission/observation: Escalation of care including admission/observation considered Lab Data [facility] Lab Attestation statement: I reviewed the patient's lab results. 07/04/24 16:57 07/04/24 16:57 Labs: Lab Results 07/04/24 Range/Units 16:57 WBC 6.8 (4.8-10.8) X10*3/uL RBC 4.99 (4.60-5.80) X10*6/uL Hgb 14.0 (14.0-18.0) g/dl Hct 40.9 L (42.0-52.0) % MCV 82.0 (80.0-98.0) fL MCH 28.1 (27.0-33.0) pg MCHC 34.2 (31.0-36.0) g/dl RDW 14.2 (11.0-16.0) % Plt Count 267 (160-400) X10*3/uL MPV 9.4 (9.4-12.4) fL Immature Gran % (Auto) 0.4 (0.0-0.4) % Neut % (Auto) 75.8 H (45-73) % Lymph % (Auto) 21.2 (20-40) % [place] % (Auto) 1.9 L (2-11) % Eos % (Auto) 0.3 (0-4) % Baso % (Auto) 0.4 (0-2) % Lymph # (Auto) 1.5 (1.2-4.9) X10*3/uL [place] # (Auto) 0.1 (0.1-1.2) X10*3/uL Eos # (Auto) 0.0 (0.0-0.4) X10*3/uL Baso # (Auto) 0.0 (0.0-0.2) X10*3/uL Abs Immat Gran (auto) 0.03 (0.00-0.03) X10*3/uL Absolute Neuts (auto) 5.2 (2.0-8.3) x10*3/uL Absolute Nucleated RBC 0.000 (0.0-0.012) X10*3/uL Nucleated RBC % (auto) 0.0 (0.0-0.2) /100WBC Sodium 140 (135-145) mmol/L Potassium 4.0 (3.3-5.1) mmol/L Chloride 111 H (96-108) mmol/L Carbon Dioxide 21 L (22-29) mmol/L Anion Gap 12 (12-20) BUN 20 H (9-16) mg/dL Creatinine 0.90 (0.5-1.4) mg/dL Estim Creat Clear Calc 154.3 Estimated GFR > 60 Random Glucose 122 H (60-115) mg/dL Calcium 9.3 (8.4-10.2) mg/dL Independent Interpretation I performed an independent interpretation of an: Plain X-Ray Interpretation: I independently viewed the x-ray and agree with the radiology report Radiology Impression Discussion of test interpretation with radiology: I have reviewed the radiologist's reading. Radiologist Impression: [address] [address] XRay Report Signed Patient: Elkin Bland MR#: [id number] : 1990 Acct:[id number] Age/Sex: 33 / M ADM Date: 07/04/24 Loc: HO.ED Attending Dr: Ordering Physician: Purnima Ritter NP Date of Service: 07/04/24 Procedure(s): XR lumbar spine 2-3V Accession Number(s): [id number] cc: Physician,None ; Purnima Ritter NP~ EXAMINATION: XR LUMBOSACRAL SPINE CLINICAL INFORMATION: Injury. Back pain. COMPARISON: Lumbar spine x-rays of 11/07/2018 . TECHNIQUE: Three views of the lumbosacral spine. FINDINGS: There are 5 lumbar-type nonrib-bearing vertebrae. The vertebral body heights and alignment are maintained. Stable mild narrowing of the L5-S1 disc space, remainder of the disc spaces are well preserved. Posterior elements appear intact. Minimal anterior wedge compression at T12 is a stable chronic finding. No suspicious lytic or blastic osseous lesions. Postcholecystectomy surgical clips in the right upper abdominal quadrant are redemonstrated. Unremarkable appearance of the sacroiliac joints. Unremarkable paraspinous soft tissues. XR/XR lumbar spine 2-3V IMPRESSION: No radiographic evidence of acute compression fracture or suspicious osseous lesion in the lumbar spine. Mild degenerative disc disease at L5-S1. Independent Historian Clinical information obtained from an independent historian. History obtained from or confirmed by: EMS Prescription Management I considered prescription management with: Pain Medication Critical Care Time Critical Care Time Critical Care Time: Yes Total Critical Care Time: 60 Attestation: Multiple re-evaluations of pain in neurological status Discharge Plan Discharge Clinical Impression: Back pain, Lumbar radiculopathy Patient Disposition: Home, Self-Care Instructions: Lumbar Radiculopathy (ED) Additional Instructions: I gave you the report of the MRI of your lumbar spine. You need to follow up with primary care, you will likely require physical therapy. Use the methocarbamol as needed, this is a muscle relaxant, it may cause drowsiness, so do not drive or operate machinery while taking the medication. Use a steroid taper as directed, you can start it tomorrow, you had multiple anti- inflammatories here in the emergency department. Given this was a work-related injury, you need to follow up with the workmen's compensation per your employer is parameters. Prescriptions: New methocarbamol 750 mg tablet 1,500 mg PO QID PRN (Reason: pain) Qty: 40 0RF methylprednisolone [Medrol (Gerard)] 4 mg tablets,dose pack 4 mg PO QAM Qty: 1 0RF Rx Instructions: use per package instructions No Action acetaminophen [Tylenol] 325 mg tablet 325 mg PO QID PRN (Reason: pain) Qty: 90 0RF prednisone 20 mg tablet 60 mg PO DAILY 5 Days Qty: 15 0RF cyclobenzaprine 5 mg tablet 5 mg PO BEDTIME PRN (Reason: muscle spasm) Qty: 20 0RF ondansetron 4 mg tablet,disintegrating 4 mg PO Q8H PRN (Reason: nausea and vomiting) Qty: 20 0RF oxycodone 5 mg tablet 5 mg PO Q6H PRN (Reason: severe pain (scale score 7-10)) Qty: 12 0RF Rx Instructions: Partial Fill upon patient request. Stand Alone Forms: Work/School Release Print Language: Beninese
[2024-07-04] MEDS: Ketorolac Tromethamine 60 MG/2 ML VIAL IM (11:28)
[2024-07-04] MEDS: Cyclobenzaprine HCl 10 MG TABLET PO (11:28)
[2024-07-04] MEDS: predniSONE 20 MG TABLET 60 MG PO (11:29)
--- NOTE | 2024-07-04 11:33 | PC.NURSE ---
pt medicated for pain per order
[2024-07-04 13:34] VITALS: BP 124/72; PULSE 68; RESP 16; TEMP 36.4; O2SAT 97
[2024-07-04] MEDS: oxyCODONE HCl Immed Release 5 MG TABLET 10 MG PO (13:38)
--- NOTE | 2024-07-04 13:40 | PC.NURSE ---
pt a&ox3, pt has continued c/o back pain more so with movement, pt has been given additional medication for pain, awaiting radiology results, will continue plan of care
--- NOTE | 2024-07-04 14:58 | PC.NURSE ---
pt states he has 8/10 pain, pt attempted to sit at bedside where his pain increased, pt states he is unable to sit up.
[2024-07-04] MEDS: Lidocaine 4 % Patch ADH..PATCH 1 PATCH TRANSDERMA (15:04)
[2024-07-04] MEDS: Morphine Sulfate 10 MG/ML CARTRIDGE 6 MG IM (15:05)
--- NOTE | 2024-07-04 15:07 | PC.NURSE ---
pt medicated per order for 05/09 back pain
--- NOTE | 2024-07-04 16:17 | PC.NURSE ---
pt was sleeping, woke to verbal stimulus, pt was assisted to side of bed where he attempted to stand and ambulate--pt legs gave out as he began to walk- he was given a walker and was unable to ambulate. vitals are being obtained, pt also stated he had 10/10 pain when he went to ambulate.
[2024-07-04 16:21] VITALS: BP 120/60; PULSE 56; RESP 15; TEMP 36.2; O2SAT 97
[2024-07-04 17:01] LABS: MANUAL DIFF FLAG NO
[2024-07-04 17:03] LABS: Basophils Percent Auto 0.4 % (0-2); Eosinophils Percent Auto 0.3 % (0-4); Hematocrit 40.9 % (42.0-52.0); Imm Gran Abs Auto 0.03 X10*3/uL (0.00-0.03); Imm Gran Pct Auto 0.4 % (0.0-0.4); Lymphocytes Absolute Auto 1.5 X10*3/uL (1.2-4.9); Lymphocytes Percent Auto 21.2 % (20-40); Mean Corpuscular HGB Conc 34.2 g/dl (31.0-36.0); Mean Corpuscular Hemoglobin 28.1 pg (27.0-33.0); Mean Platelet Volume 9.4 fL (9.4-12.4); Monocytes Absolute Auto 0.1 X10*3/uL (0.1-1.2); Monocytes Percent Auto 1.9 % (2-11); Neutrophils Absolute Auto 5.2 x10*3/uL (2.0-8.3); Neutrophils Percent Auto 75.8 % (45-73); Platelet Count 267 X10*3/uL (160-400); Red Blood Count 4.99 X10*6/uL (4.60-5.80); Red Cell Distribution Width 14.2 % (11.0-16.0); White Blood Count 6.8 X10*3/uL (4.8-10.8)
[2024-07-04] MEDS: Morphine Sulfate 4 MG/ML CARTRIDGE IVPUSH (17:04)
[2024-07-04 17:14] LABS: Anion Gap 12 (12-20); Blood Urea Nitrogen 20 mg/dL (9-16); Calcium 9.3 mg/dL (8.4-10.2); Carbon Dioxide 21 mmol/L (22-29); Chloride 111 mmol/L (96-108); Creatinine Clr Calc Pharmacy 154.3; Estimated Glomerular Filt Rate > 60; Glucose Random 122 mg/dL (60-115); Sodium 140 mmol/L (135-145)
--- NOTE | 2024-07-04 18:06 | PC.NURSE ---
pt to mri
[2024-07-04] MEDS: methocarbamoL 750 MG TABLET 1500 MG PO (20:58)
[2024-07-04 21:01] VITALS: BP 124/83; PULSE 86; RESP 18; TEMP 36.6; O2SAT 97
--- NOTE | 2024-07-04 22:22 | PC.NURSE ---
Pt requesting to ambulate, Pt stood up at edge of bed and was able to ambulate without walker. Pt reports effectiveness to meds given and is requesting to go home. Provider Destiny Joy made aware.
[2024-07-04 22:56] VITALS: BP 124/83; PULSE 86; RESP 18; TEMP 36.6; O2SAT 97
== END 2024-07-04 23:00 | disposition home or self-care (01) ==
PROVIDERS: Nurse Practitioner Family; Emergency Provider Internal Medicine
DX: Z04.2 Encounter for examination and observation following work accident (principal); M54.50 Low back pain, unspecified; M54.16 Radiculopathy, lumbar region
CPT/HCPCS: 36415; 72100; 72148; 80048; 85025; 96372; 96374; 99284; 99285; J1885; J2270

== ENCOUNTER 2024-07-22 13:30 | Emergency (ER) | payer MEDICAID, SELFPAY ==
--- NOTE | ~2024-07-22 | XR_ITS ---
EXAMINATION: XR CHEST 2 VIEW CLINICAL INFORMATION: Cough, chest shortness of breath COMPARISON: 11/07/2018 TECHNIQUE: PA and lateral views of the chest obtained. FINDINGS: The lungs are clear. There are no pleural effusions. The cardiomediastinal silhouette is normal. XR/XR chest 2V IMPRESSION: No acute cardiopulmonary disease. Electronically signed by: Bucky Hill MD 07/22/2024 02:55 PM EDT
--- NOTE | 2024-07-22 13:32 | ECG_ITS ---
Test Reason : chest pain Blood Pressure : / mmHG Vent. Rate : 092 BPM Atrial Rate : 092 BPM P-R Int : 164 ms QRS Dur : 086 ms QT Int : 346 ms P-R-T Axes : 047 044 023 degrees QTc Int : 427 ms Normal sinus rhythm Normal ECG No previous ECGs available Referred By: Generic ED Physician Electronically Signed By:Javier Mena
--- NOTE | 2024-07-22 13:41 | ED.GENADULT ---
HPI - General Adult General Chief complaint: General Medical Stated complaint: flu symptoms-cp Time Seen by Provider: 07/22/24 15:33 Source: patient Mode of arrival: ambulatory Limitations: no limitations History of Present Illness HPI narrative: This is a 33-year-old man with a past medical history of chronic back pain, L5-S1 central disc extrusion who presents for evaluation of fever, cough, myalgias, nausea/vomiting, headache and diarrhea. Patient states that he has been sick for the last 3 days. He states no chest pain when coughing. He states no dyspnea. He reports feeling tired. He states no abdominal pain. He states no recent trauma or falls. He states no syncope. He states no urinary symptoms. He states no history of cardiopulmonary disease. Related Data Previous Rx's ?Medication ?Instructions ?Recorded acetaminophen 325 mg tablet 325 mg PO QID PRN pain #90 tabs 01/23/23 (Tylenol) cyclobenzaprine 5 mg tablet 5 mg PO BEDTIME PRN muscle spasm 01/23/23 #20 tabs prednisone 20 mg tablet 60 mg (3 x 20 mg) PO DAILY Asthma 01/23/23 5 days #15 tabs ondansetron 4 mg disintegrating 4 mg PO Q8H PRN nausea and 08/23/23 tablet vomiting #20 tabs oxycodone 5 mg tablet 5 mg PO Q6H PRN severe pain (scale 08/23/23 score 7-10) #12 tabs methocarbamol 750 mg tablet 1,500 mg (2 x 750 mg) PO QID PRN 07/04/24 pain #40 tabs methylprednisolone 4 mg tablets in 4 mg PO QAM #1 ea 07/04/24 a dose pack (Medrol (Gerard)) benzonatate 100 mg capsule 100 mg PO TID PRN cough #14 caps 07/22/24 ondansetron 4 mg disintegrating 4 mg PO Q8H PRN nausea and 07/22/24 tablet vomiting #14 tabs Allergies Allergy/AdvReac Type Severity Reaction Status Date / Time No Known Allergies Allergy Verified 07/22/24 13:43 [No Known Allergies*] Review of Systems Review of Systems: ROS as per [facility] Social History Social History Substance Use Type: Marijuana Advance Directives: No Advance Directives Information Provided: Yes Physical Exam ED Vital Signs: Vital Signs - 24 hr 07/22/24 13:42 07/22/24 16:11 Temperature 99.3 F 99.3 F Pulse Rate 96 100 Respiratory Rate 24 H 16 Blood Pressure 142/83 H 151/57 H Pulse Oximetry 100 98 Oxygen Delivery Method Room Air BMI result Body Mass Index 33.8 Gen: NAD, AOx3 HEENT: NCAT, EOMI, normal conjunctiva CV: RRR Pulm: CTAB, no increased work of breathing GI: Soft, NTND, no rebound, guarding or rigidity Neuro: Grossly non focal Course Course Course Narrative: This is an RME: Additional HPI, ROS, PE not included below will be deferred to primary provider. RME assessment and note performed by: Dana Butterfield PA-C This is a [id number]-male, with a PMHX of herniated discs, who presents to the ER with complaints of body aches, cough, fevers, diarrhea, nausea, vomiting, headaches x 2 days. Went to an urgent care just [place] and was told that he did not have covid/flu. Plan: labs, ekg, cxr, viral swabs Medications Administered Discontinued Medications Generic Name Dose Route Start Last Admin Trade Name Freq PRN Reason Stop Dose Admin Acetaminophen 975 mg 07/22/24 15:39 07/22/24 15:46 Acetaminophen 325 Mg Tablet PO 07/22/24 15:40 975 mg ONCE ONE Administration Ibuprofen 600 mg 07/22/24 15:39 07/22/24 15:46 Ibuprofen 600 Mg Tablet PO 07/22/24 15:40 600 mg ONCE ONE Administration Ondansetron HCl 4 mg 07/22/24 15:38 07/22/24 15:46 Ondansetron Odt 4 Mg Tab.Rapdis TRANSLINGU 07/22/24 15:39 4 mg ONCE ONE Administration Medical Decision Making Medical Decision Making [facility] Narrative: Differential diagnosis includes, but is not limited to viral URI, pneumonia, myocarditis, gastroenteritis, acute kidney injury, electrolyte derangement, starvation ketosis. Patient's temperature is 99.3? F and he is hemodynamically stable on room air. Exam is benign and reassuring. I have reviewed the patient's labs, EKG and viral testing and imaging as below, which are overall very reassuring. There are no electrolyte derangements, evidence of acute kidney derangement or elevation in anion gap to suggest starvation ketosis. Patient is clinically euvolemic. EKG demonstrates no ischemic changes and troponin is negative effectively ruling out myocarditis. Patient tests positive for influenza a and I suspect that this is likely etiology of patient's symptoms. I have provided supportive care with Tylenol, ibuprofen and Zofran here in the emergency room. Chest x-ray is unremarkable for any acute findings. On re-examination, patient is well-appearing and in no acute distress. ?There is no indication for further emergent evaluation in this otherwise well-appearing patient as above. ?I have counseled the patient on increased risk of post viral pneumonia and I have recommended continued supportive care at home and close monitoring with low threshold to return for re-evaluation. Patient is provided written and verbal instructions, prescription for Zofran and Tessalon Perles, educational materials, recommendations for outpatient follow-up, strict return precautions and teach back is performed. ?Patient states understanding and agreement with plan of care. ?Patient is discharged home in stable and improved condition. Admission/Observation Consideration of admission/observation: Escalation of care including admission/observation considered Lab Data MDM Lab Attestation statement: I reviewed the patient's lab results. I independently reviewed interpreted patient's labs including CBC, metabolic panel, troponin and lipase which are benign and reassuring. Patient tests positive for influenza A. 07/22/24 14:06 07/22/24 14:06 Labs: Lab Results 07/22/24 Range/Units 14:06 WBC 5.5 (4.8-10.8) X10*3/uL RBC 5.06 (4.60-5.80) X10*6/uL Hgb 14.1 (14.0-18.0) g/dl Hct 41.3 L (42.0-52.0) % MCV 81.6 (80.0-98.0) fL MCH 27.9 (27.0-33.0) pg MCHC 34.1 (31.0-36.0) g/dl RDW 14.1 (11.0-16.0) % Plt Count 185 D (160-400) X10*3/uL MPV 9.8 (9.4-12.4) fL Immature Gran % (Auto) 0.4 (0.0-0.4) % Neut % (Auto) 65.0 (45-73) % Lymph % (Auto) 20.8 (20-40) % [place] % (Auto) 12.5 H (2-11) % Eos % (Auto) 0.4 (0-4) % Baso % (Auto) 0.9 (0-2) % Lymph # (Auto) 1.2 (1.2-4.9) X10*3/uL [place] # (Auto) 0.7 (0.1-1.2) X10*3/uL Eos # (Auto) 0.0 (0.0-0.4) X10*3/uL Baso # (Auto) 0.1 (0.0-0.2) X10*3/uL Abs Immat Gran (auto) 0.02 (0.00-0.03) X10*3/uL Absolute Neuts (auto) 3.6 (2.0-8.3) x10*3/uL Absolute Nucleated RBC 0.000 (0.0-0.012) X10*3/uL Nucleated RBC % (auto) 0.0 (0.0-0.2) /100WBC Sodium 138 (135-145) mmol/L Potassium 3.5 (3.3-5.1) mmol/L Chloride 107 (96-108) mmol/L Carbon Dioxide 22 (22-29) mmol/L Anion Gap 13 (12-20) BUN 16 (9-16) mg/dL Creatinine 1.04 (0.5-1.4) mg/dL Estim Creat Clear Calc 131.0 Estimated GFR > 60 Random Glucose 100 (60-115) mg/dL Calcium 9.5 (8.4-10.2) mg/dL Magnesium 1.9 (1.6-2.6) mg/dL Total Bilirubin 1.1 H (0.0-1.0) mg/dL Direct Bilirubin 0.3 (0.0-0.5) mg/dL AST 34 (5-37) U/L ALT 43 H (0-40) U/L Alkaline Phosphatase 68 (39-117) U/L Troponin I High Sens < 2.7 (<3.5-35.0) ng/L Total Protein 7.5 (6.5-8.0) g/dL Albumin 4.2 (3.5-5.0) g/dL Lipase 24 (8-78) U/L Influenza Type A (PCR) POSITIVE A (Negative) Influenza Type B (PCR) NEGATIVE (Negative) RSV RNA Qual (PCR) NEGATIVE (Negative) SARS-CoV-2 RNA (RT-PCR) NEGATIVE (Negative) Independent Interpretation I performed an independent interpretation of an: EKG and Plain X-Ray Interpretation: I independently reviewed and interpreted the patient's EKG, which demonstrates a sinus rhythm at 92 beats per minute, MS 164, QRS 86, QTC 427, no STEMI. I independently reviewed and interpreted the patient's chest x-ray, which demonstrates no focal consolidation, pleural effusion or pneumothorax. Radiology Impression Discussion of test interpretation with radiology: I have reviewed the radiologist's reading. Radiologist Impression: XR/XR chest 2V IMPRESSION: No acute cardiopulmonary disease. Electronically signed by: Bucky Hill MD 07/22/2024 02:55 PM EDT RP Dictated By: Bucky Hill MD Signed By: <Electronically signed by Bucky Hill MD in OV> 07/22/24 14 Discharge Plan Discharge Clinical Impression: Influenza Patient Disposition: Home, Self-Care Instructions: Influenza (ED) Additional Instructions: You were evaluated in the emergency room. You were given Tylenol, Ibuprofen and nausea medicine. Your blood work was normal. Please take 1000mg Tylenol every 6-8 hours for pain/fever. Please taek 600mg ibuprofen with food and water every 6 hours for pain/fever. Please make sure you are not taking any other over the counter medications that contain non-steriodal antiinflammatory drugs (NSAIDs) or acetaminophen (Tylenol) You are given a prescription for cough medicine and nausea medicine. Please take as directed. Please be sure to keep the cough medication away from any children. Please follow up with your primary care doctor in 1 week. Return to the emergency room with any new concerns or symptoms including, but not limited to difficulty breathing. Prescriptions: New ondansetron 4 mg tablet,disintegrating 4 mg PO Q8H PRN (Reason: nausea and vomiting) Qty: 14 0RF benzonatate 100 mg capsule 100 mg PO TID PRN (Reason: cough) Qty: 14 0RF No Action acetaminophen [Tylenol] 325 mg tablet 325 mg PO QID PRN (Reason: pain) Qty: 90 0RF prednisone 20 mg tablet 60 mg PO DAILY 5 Days Qty: 15 0RF cyclobenzaprine 5 mg tablet 5 mg PO BEDTIME PRN (Reason: muscle spasm) Qty: 20 0RF ondansetron 4 mg tablet,disintegrating 4 mg PO Q8H PRN (Reason: nausea and vomiting) Qty: 20 0RF oxycodone 5 mg tablet 5 mg PO Q6H PRN (Reason: severe pain (scale score 7-10)) Qty: 12 0RF Rx Instructions: Partial Fill upon patient request. methocarbamol 750 mg tablet 1,500 mg PO QID PRN (Reason: pain) Qty: 40 0RF methylprednisolone [Medrol (Gerard)] 4 mg tablets,dose pack 4 mg PO QAM Qty: 1 0RF Rx Instructions: use per package instructions Discharge Date/Time: 07/22/24 16:13 Print Language: Maltese
[2024-07-22 13:42] VITALS: BP 142/83; PULSE 96; RESP 24; TEMP 37.4; O2SAT 100; BMI 33.8
[2024-07-22 14:28] LABS: MANUAL DIFF FLAG NO
[2024-07-22 14:29] LABS: Basophils Absolute Auto 0.1 X10*3/uL (0.0-0.2); Basophils Percent Auto 0.9 % (0-2); Eosinophils Percent Auto 0.4 % (0-4); Hematocrit 41.3 % (42.0-52.0); Hemoglobin 14.1 g/dl (14.0-18.0); Imm Gran Abs Auto 0.02 X10*3/uL (0.00-0.03); Imm Gran Pct Auto 0.4 % (0.0-0.4); Lymphocytes Absolute Auto 1.2 X10*3/uL (1.2-4.9); Lymphocytes Percent Auto 20.8 % (20-40); Mean Corpuscular HGB Conc 34.1 g/dl (31.0-36.0); Mean Corpuscular Hemoglobin 27.9 pg (27.0-33.0); Mean Corpuscular Volume 81.6 fL (80.0-98.0); Mean Platelet Volume 9.8 fL (9.4-12.4); Monocytes Absolute Auto 0.7 X10*3/uL (0.1-1.2); Monocytes Percent Auto 12.5 % (2-11); Neutrophils Absolute Auto 3.6 x10*3/uL (2.0-8.3); Platelet Count 185 X10*3/uL (160-400); Red Blood Count 5.06 X10*6/uL (4.60-5.80); Red Cell Distribution Width 14.1 % (11.0-16.0); White Blood Count 5.5 X10*3/uL (4.8-10.8)
[2024-07-22 14:43] LABS: Alanine Aminotransferase 43 U/L (0-40); Albumin Level 4.2 g/dL (3.5-5.0); Alkaline Phosphatase 68 U/L (39-117); Anion Gap 13 (12-20); Aspartate Amino Transferase 34 U/L (5-37); Bilirubin Direct 0.3 mg/dL (0.0-0.5); Bilirubin Total 1.1 mg/dL (0.0-1.0); Blood Urea Nitrogen 16 mg/dL (9-16); Calcium 9.5 mg/dL (8.4-10.2); Carbon Dioxide 22 mmol/L (22-29); Chloride 107 mmol/L (96-108); Estimated Glomerular Filt Rate > 60; Glucose Random 100 mg/dL (60-115); Lipase 24 U/L (8-78); Magnesium 1.9 mg/dL (1.6-2.6); Potassium 3.5 mmol/L (3.3-5.1); Sodium 138 mmol/L (135-145); Total Protein 7.5 g/dL (6.5-8.0)
[2024-07-22 14:52] LABS: Troponin-I High Sensitivity < 2.7 ng/L (<3.5-35.0)
[2024-07-22 15:11] LABS: Influenza A PCR POSITIVE (Negative); Influenza B PCR NEGATIVE (Negative); Resp Syncy Virus RNA Qual PCR NEGATIVE (Negative); SARS COV2 PCR INHOUSE NEGATIVE (Negative)
--- NOTE | 2024-07-22 15:33 | ED_ITS ---
HPI - General Adult General Chief complaint: General Medical Stated complaint: flu symptoms-cp Time Seen by Provider: 07/22/24 15:33 Source: patient Mode of arrival: ambulatory Limitations: no limitations History of Present Illness HPI narrative: This is a 33-year-old male with a past medical history chronic back pain, L5-S1 central disc extrusion Related Data Previous Rx's ?Medication ?Instructions ?Recorded acetaminophen 325 mg tablet 325 mg PO QID PRN pain #90 tabs 01/23/23 (Tylenol) cyclobenzaprine 5 mg tablet 5 mg PO BEDTIME PRN muscle spasm 01/23/23 #20 tabs prednisone 20 mg tablet 60 mg (3 x 20 mg) PO DAILY Asthma 01/23/23 5 days #15 tabs ondansetron 4 mg disintegrating 4 mg PO Q8H PRN nausea and 08/23/23 tablet vomiting #20 tabs oxycodone 5 mg tablet 5 mg PO Q6H PRN severe pain (scale 08/23/23 score 7-10) #12 tabs methocarbamol 750 mg tablet 1,500 mg (2 x 750 mg) PO QID PRN 07/04/24 pain #40 tabs methylprednisolone 4 mg tablets in 4 mg PO QAM #1 ea 07/04/24 a dose pack (Medrol (Gerard)) benzonatate 100 mg capsule 100 mg PO TID PRN cough #14 caps 07/22/24 ondansetron 4 mg disintegrating 4 mg PO Q8H PRN nausea and 07/22/24 tablet vomiting #14 tabs Allergies Allergy/AdvReac Type Severity Reaction Status Date / Time No Known Allergies Allergy Verified 07/22/24 13:43 [No Known Allergies*] [facility] Social History Social History Substance Use Type: Marijuana Physical Exam ED Vital Signs: Vital Signs - 24 hr 07/22/24 13:42 Temperature 99.3 F Pulse Rate 96 Respiratory Rate 24 H Blood Pressure 142/83 H Pulse Oximetry 100 Oxygen Delivery Method Room Air BMI result Body Mass Index 33.8 Medications Administered Discontinued Medications Generic Name Dose Route Start Last Admin Trade Name Freq PRN Reason Stop Dose Admin Acetaminophen 975 mg 07/22/24 15:39 07/22/24 15:46 Acetaminophen 325 Mg Tablet PO 07/22/24 15:40 975 mg ONCE ONE Administration Ibuprofen 600 mg 07/22/24 15:39 07/22/24 15:46 Ibuprofen 600 Mg Tablet PO 07/22/24 15:40 600 mg ONCE ONE Administration Ondansetron HCl 4 mg 07/22/24 15:38 07/22/24 15:46 Ondansetron Odt 4 Mg Tab.Rapdis TRANSLINGU 07/22/24 15:39 4 mg ONCE ONE Administration Medical Decision Making Lab Data 07/22/24 14:06 07/22/24 14:06 Labs: Lab Results 07/22/24 Range/Units 14:06 WBC 5.5 (4.8-10.8) X10*3/uL RBC 5.06 (4.60-5.80) X10*6/uL Hgb 14.1 (14.0-18.0) g/dl Hct 41.3 L (42.0-52.0) % MCV 81.6 (80.0-98.0) fL MCH 27.9 (27.0-33.0) pg MCHC 34.1 (31.0-36.0) g/dl RDW 14.1 (11.0-16.0) % Plt Count 185 D (160-400) X10*3/uL MPV 9.8 (9.4-12.4) fL Immature Gran % (Auto) 0.4 (0.0-0.4) % Neut % (Auto) 65.0 (45-73) % Lymph % (Auto) 20.8 (20-40) % [place] % (Auto) 12.5 H (2-11) % Eos % (Auto) 0.4 (0-4) % Baso % (Auto) 0.9 (0-2) % Lymph # (Auto) 1.2 (1.2-4.9) X10*3/uL [place] # (Auto) 0.7 (0.1-1.2) X10*3/uL Eos # (Auto) 0.0 (0.0-0.4) X10*3/uL Baso # (Auto) 0.1 (0.0-0.2) X10*3/uL Abs Immat Gran (auto) 0.02 (0.00-0.03) X10*3/uL Absolute Neuts (auto) 3.6 (2.0-8.3) x10*3/uL Absolute Nucleated RBC 0.000 (0.0-0.012) X10*3/uL Nucleated RBC % (auto) 0.0 (0.0-0.2) /100WBC Sodium 138 (135-145) mmol/L Potassium 3.5 (3.3-5.1) mmol/L Chloride 107 (96-108) mmol/L Carbon Dioxide 22 (22-29) mmol/L Anion Gap 13 (12-20) BUN 16 (9-16) mg/dL Creatinine 1.04 (0.5-1.4) mg/dL Estim Creat Clear Calc 131.0 Estimated GFR > 60 Random Glucose 100 (60-115) mg/dL Calcium 9.5 (8.4-10.2) mg/dL Magnesium 1.9 (1.6-2.6) mg/dL Total Bilirubin 1.1 H (0.0-1.0) mg/dL Direct Bilirubin 0.3 (0.0-0.5) mg/dL AST 34 (5-37) U/L ALT 43 H (0-40) U/L Alkaline Phosphatase 68 (39-117) U/L Troponin I High Sens < 2.7 (<3.5-35.0) ng/L Total Protein 7.5 (6.5-8.0) g/dL Albumin 4.2 (3.5-5.0) g/dL Lipase 24 (8-78) U/L Influenza Type A (PCR) POSITIVE A (Negative) Influenza Type B (PCR) NEGATIVE (Negative) RSV RNA Qual (PCR) NEGATIVE (Negative) SARS-CoV-2 RNA (RT-PCR) NEGATIVE (Negative) Discharge Plan Discharge Clinical Impression: Influenza Patient Disposition: Home, Self-Care Instructions: Influenza (ED) Additional Instructions: You were evaluated in the emergency room. You were given Tylenol, Ibuprofen and nausea medicine. Your blood work was normal. Please take 1000mg Tylenol every 6-8 hours for pain/fever. Please taek 600mg ibuprofen with food and water every 6 hours for pain/fever. Please make sure you are not taking any other over the counter medications that contain non-steriodal antiinflammatory drugs (NSAIDs) or acetaminophen (Tylenol) You are given a prescription for cough medicine and nausea medicine. Please take as directed. Please be sure to keep the cough medication away from any children. Please follow up with your primary care doctor in 1 week. Return to the emergency room with any new concerns or symptoms including, but not limited to difficulty breathing. Prescriptions: New ondansetron 4 mg tablet,disintegrating 4 mg PO Q8H PRN (Reason: nausea and vomiting) Qty: 14 0RF benzonatate 100 mg capsule 100 mg PO TID PRN (Reason: cough) Qty: 14 0RF No Action acetaminophen [Tylenol] 325 mg tablet 325 mg PO QID PRN (Reason: pain) Qty: 90 0RF prednisone 20 mg tablet 60 mg PO DAILY 5 Days Qty: 15 0RF cyclobenzaprine 5 mg tablet 5 mg PO BEDTIME PRN (Reason: muscle spasm) Qty: 20 0RF ondansetron 4 mg tablet,disintegrating 4 mg PO Q8H PRN (Reason: nausea and vomiting) Qty: 20 0RF oxycodone 5 mg tablet 5 mg PO Q6H PRN (Reason: severe pain (scale score 7-10)) Qty: 12 0RF Rx Instructions: Partial Fill upon patient request. methocarbamol 750 mg tablet 1,500 mg PO QID PRN (Reason: pain) Qty: 40 0RF methylprednisolone [Medrol (Gerard)] 4 mg tablets,dose pack 4 mg PO QAM Qty: 1 0RF Rx Instructions: use per package instructions Discharge Date/Time: 07/22/24 16:13 Print Language: Swedish
[2024-07-22] MEDS: Ibuprofen 600 MG TABLET PO (15:46)
[2024-07-22] MEDS: Ondansetron ODT 4 MG TAB.RAPDIS TRANSLINGU (15:46)
[2024-07-22] MEDS: Acetaminophen 325 MG TABLET 975 MG PO (15:46)
[2024-07-22 16:11] VITALS: BP 151/57; PULSE 100; RESP 16; TEMP 37.4; O2SAT 98
== END 2024-07-22 16:13 | disposition home or self-care (01) ==
PROVIDERS: Physician Assistant Medical; Emergency Provider Emergency Medicine
DX: J11.1 Influenza due to unidentified influenza virus with other respiratory manifestations (principal); Z03.818 Encounter for observation for suspected exposure to other biological agents ruled out; R05.9 Cough, unspecified
CPT/HCPCS: 0241U; 71046; 80048; 80076; 83690; 83735; 84484; 85025; 93005; 99283

== ENCOUNTER → 2024-07-22 13:32 | Outpatient (BNV) | payer MEDICAID, SELFPAY | PROVIDERS: Emergency Provider Emergency Medicine; Visit Provider Internal Medicine Cardiovascular Disease | DX: R07.9 Chest pain, unspecified (principal) | CPT/HCPCS: 93010 ==